=== PATIENT | male | born 1955 | race Caucasian/White ===

== ENCOUNTER 2020-10-03 10:21 | Emergency (ER) | payer BC ==
[2020-10-03 11:44] LABS: BASOPHILS % (AUTO) 0.4 % (0.0-5.0); EOSINOPHILS % (AUTO) 1.2 % (0.0-8.0); HEMATOCRIT 47.5 % (42-54); LYMPHOCYTES % (AUTO) 24.6 % (21.0-51.0); MEAN CORPUSCULAR HEMOGLOBIN 31.2 pg (27.0-33.0); MEAN CORPUSCULAR HGB CONC 33.3 g/dL (32.0-36.0); MEAN CORPUSCULAR VOLUME 93.9 fL (79-99); MONOCYTES % (AUTO) 11.2 % (3.0-13.0); NEUTROPHILS % (AUTO) 62.2 % (40.0-77.0); PLATELET COUNT (AUTO) 212 K/uL (130-400); RED BLOOD CELL COUNT(AUTO) 5.06 MIL/uL (4.50-6.20); RED CELL DISTRIBUTION WIDTH 13.2 % (11.0-15.5); WHITE BLOOD COUNT (AUTO) 4.8 K/uL (4.8-10.8)
[2020-10-03 11:49] LABS: CREATININE 1.3 mg/dL (0.5-1.5); POTASSIUM 4.5 mmol/L (3.5-5.1)
[2020-10-03 11:53] LABS: BILIRUBIN,TOTAL 1.2 mg/dL (0.2-1.0); TOTAL PROTEIN, SERUM 7.1 g/dL (6.0-8.3)
[2020-10-03 12:04] LABS: TROPONIN I 0.05 ng/mL (0.00-0.06)
== END 2020-10-03 13:59 | disposition home or self-care (01) ==
LOC: EDH 10:21
DX: R06.02 Shortness of breath (principal); F41.9 Anxiety disorder, unspecified; I10 Essential (primary) hypertension; Z90.49 Acquired absence of other specified parts of digestive tract
CPT/HCPCS: 36415; 71045; 80053; 82550; 83874; 84484; 85025; 93005

== ENCOUNTER 2020-11-04 10:23 | Emergency (ER) | payer BC ==
[2020-11-04 11:27] LABS: CREATININE 1.9 mg/dL (0.5-1.5); POTASSIUM 4.1 mmol/L (3.5-5.1)
[2020-11-04 11:29] LABS: BASOPHILS % (AUTO) 0.2 % (0.0-5.0); EOSINOPHILS % (AUTO) 0.7 % (0.0-8.0); HEMATOCRIT 54.6 % (42-54); LYMPHOCYTES % (AUTO) 14.3 % (21.0-51.0); MEAN CORPUSCULAR HEMOGLOBIN 30.6 pg (27.0-33.0); MEAN CORPUSCULAR HGB CONC 33.5 g/dL (32.0-36.0); MEAN CORPUSCULAR VOLUME 91.2 fL (79-99); MONOCYTES % (AUTO) 17.4 % (3.0-13.0); NEUTROPHILS % (AUTO) 66.9 % (40.0-77.0); PLATELET COUNT (AUTO) 152 K/uL (130-400); RED BLOOD CELL COUNT(AUTO) 5.99 MIL/uL (4.50-6.20); RED CELL DISTRIBUTION WIDTH 13.3 % (11.0-15.5); WHITE BLOOD COUNT (AUTO) 4.3 K/uL (4.8-10.8)
[2020-11-04 11:40] LABS: ALBUMIN 3.8 g/dL (3.5-5.0); BILIRUBIN,TOTAL 0.6 mg/dL (0.2-1.0); TOTAL PROTEIN, SERUM 7.3 g/dL (6.0-8.3)
== END 2020-11-04 15:02 | disposition home or self-care (01) ==
LOC: EDH 10:23
DX: I95.2 Hypotension due to drugs (principal); I11.0 Hypertensive heart disease with heart failure; I50.9 Heart failure, unspecified; I42.9 Cardiomyopathy, unspecified; R74.8 Abnormal levels of other serum enzymes
CPT/HCPCS: 36415; 71045; 80053; 82550; 83880; 84484; 85025; 93005

== ENCOUNTER 2020-11-06 16:55 | Inpatient (IN) | payer BC ==
[~2020-11-06] VITALS: Ht 185.4 cm; Wt 93.9 kg
[2020-11-06] MEDS ORDERED: CEFTRIAXONE 1G VIAL ONE (18:04)
[2020-11-06] MEDS ORDERED: ASPIRIN 325 MG TABLET ONE (18:04)
[2020-11-06] MEDS ORDERED: AZITHROMYCIN 250 MG TABLET PO ONE (18:04)
[2020-11-06] MEDS ORDERED: ACETAMINOPHEN 325 MG TAB ONE (18:05)
[2020-11-06 18:51] LABS: HEMATOCRIT 48.7 % (42-54); MEAN CORPUSCULAR HEMOGLOBIN 29.7 pg (27.0-33.0); MEAN CORPUSCULAR HGB CONC 32.9 g/dL (32.0-36.0); MEAN CORPUSCULAR VOLUME 90.5 fL (79-99); MONOCYTES % (AUTO) 7.5 % (3.0-13.0); NEUTROPHILS % (AUTO) 77.9 % (40.0-77.0); PLATELET COUNT (AUTO) 112 K/uL (130-400); RED BLOOD CELL COUNT(AUTO) 5.38 MIL/uL (4.50-6.20); RED CELL DISTRIBUTION WIDTH 13.3 % (11.0-15.5); WHITE BLOOD COUNT (AUTO) 3.2 K/uL (4.8-10.8)
[2020-11-06 19:02] LABS: CREATININE 1.2 mg/dL (0.5-1.5); POTASSIUM 3.9 mmol/L (3.5-5.1)
[2020-11-06 19:15] LABS: B-TYPE NATRIURETIC PEPTIDE 493 pg/mL (0-100)
[2020-11-06 19:15] LABS: ALBUMIN 3.1 g/dL (3.5-5.0); BILIRUBIN,TOTAL 0.6 mg/dL (0.2-1.0); TOTAL PROTEIN, SERUM 6.4 g/dL (6.0-8.3)
[2020-11-06 19:31] LABS: APPEARANCE,URINE Clear (CLEAR); BILIRUBIN,URINE Small (NEGATIVE); COLOR,URINE Dark Yellow (YELLOW); GLUCOSE, URINE (UA) Negative (NEGATIVE); KETONES,URINE Trace mg/dL (NEGATIVE); LEUKOCYTE ESTERASE ,URINE Trace (NEGATIVE); NITRATE,URINE Negative (NEGATIVE); OCCULT BLOOD,URINE Trace (NEGATIVE); PH,URINE 5.5 (5.0-8.0); PROTEIN,URINE 300 mg/dL (NEGATIVE)
[2020-11-06 19:38] LABS: AMPHET/METH SCREEN,URINE NEGATIVE (NEGATIVE); BARBITURATE SCREEN, URINE NEGATIVE (NEGATIVE); BENZODIAZEPINES SCREEN,URINE POSITIVE (NEGATIVE); CANNABINOID SCREEN,URINE POSITIVE (NEGATIVE); COCAINE SCREEN,URINE NEGATIVE (NEGATIVE); OPIATE SCREEN,URINE NEGATIVE (NEGATIVE); PHENCYCLIDINE SCREEN,URINE NEGATIVE (NEGATIVE)
[2020-11-06 19:44] LABS: BACTERIA,URINE Few /HPF (None Seen); MUCUS,URINE Rare LPF (None Seen); RBC,URINE 0-1 /HPF (0-1); SQUAMOUS EPITHELIAL CELL,UR Rare /HPF (0-2)
[2020-11-06 20:03] LABS: INR 1.09 (0.85-1.15); PROTHROMBIN TIME 11.8 SEC (9.6-11.6)
[2020-11-06 20:04] LABS: PARTIAL THROMBOPLASTIN TIME 34.2 SEC (26.3-35.5)
[2020-11-06] MEDS ORDERED: ACETAMINOPHEN 325 MG TAB PO PRN (21:30)
[2020-11-06] MEDS ORDERED: MAG/ALUM/SIMETH 30 ML UDCUP PO PRN (21:30)
[2020-11-06] MEDS ORDERED: NITROGLYCERIN 0.4 MG SL TAB SL PRN (21:30)
[2020-11-06] MEDS ORDERED: LACTULOSE 20 GM/30 ML UDCUP PO PRN (21:30)
[2020-11-06] MEDS ORDERED: GUAIFENESIN-DM 200/20 MG 10 ML PO PRN (21:30)
[2020-11-06] MEDS: AZITHROMYCIN 250 MG TABLET PO SCH (22:30)
[2020-11-07] MEDS ORDERED: GUAIFENESIN-DM 200/20 MG 10 ML ONE (00:54)
[2020-11-07] MEDS ORDERED: AZITHROMYCIN 250 MG TABLET PO ONE (00:54)
[2020-11-07] MEDS ORDERED: ACETAMINOPHEN WITH CODEINE 1 TAB TAB ONE (00:54)
[2020-11-07 03:29] VITALS: BP 99/64
[2020-11-07] MEDS: ACETAMINOPHEN WITH CODEINE 1 TAB TAB PO PRN ×2 (03:38→21:12)
[2020-11-07] MEDS ORDERED: SACU1TAB7 PO (04:34)
[2020-11-07] MEDS ORDERED: CARV12.511 PO (04:34)
[2020-11-07 05:59] LABS: BASOPHILS % (AUTO) 0.5 % (0.0-5.0); EOSINOPHILS % (AUTO) 1.4 % (0.0-8.0); HEMATOCRIT 47.7 % (42-54); MEAN CORPUSCULAR HEMOGLOBIN 30.6 pg (27.0-33.0); MEAN CORPUSCULAR HGB CONC 33.5 g/dL (32.0-36.0); MEAN CORPUSCULAR VOLUME 91.2 fL (79-99); MONOCYTES % (AUTO) 4.1 % (3.0-13.0); NEUTROPHILS % (AUTO) 79.3 % (40.0-77.0); PLATELET COUNT (AUTO) 112 K/uL (130-400); RED BLOOD CELL COUNT(AUTO) 5.23 MIL/uL (4.50-6.20); RED CELL DISTRIBUTION WIDTH 13.4 % (11.0-15.5); WHITE BLOOD COUNT (AUTO) 4.4 K/uL (4.8-10.8)
[2020-11-07] MEDS ORDERED: BENZONATATE 100 MG CAPSULE PO PRN (06:00)
[2020-11-07] MEDS ORDERED: GUAIFENESIN-CODEINE 5 ML SYRUP PO PRN (06:00)
[2020-11-07] MEDS ORDERED: GUAIFENESIN-CODEINE 5 ML SYRUP ONE (06:10)
[2020-11-07 06:17] LABS: CREATININE 1.3 mg/dL (0.5-1.5); CRP QUANTITATIVE 126.7 mg/L (0.00-9.0); MAGNESIUM 1.9 mg/dL (1.80-2.40); PHOSPHORUS 2.2 mg/dL (2.5-4.9); POTASSIUM 4.2 mmol/L (3.5-5.1)
[2020-11-07] MEDS ORDERED: BENZONATATE 100 MG CAPSULE PO ONE (06:18)
[2020-11-07] MEDS ORDERED: BENZOCAINE/MENTH/CETYLPYRD CL 1 EACH LOZENGE MM ONE (06:19)
[2020-11-07] MEDS: BENZONATATE 100 MG CAPSULE PO SCH ×3 (06:23→20:23)
[2020-11-07 08:00] VITALS: BP 105/79
[2020-11-07] MEDS: ASPIRIN 325MG EC TAB PO SCH (08:40)
[2020-11-07] MEDS: FAMOTIDINE 20MG VIAL IV SCH ×2 (08:40→20:24)
[2020-11-07] MEDS: ENOXAPARIN SODIUM 40 MG/0.4 ML SYRINGE SQ SCH (08:41)
[2020-11-07] MEDS ORDERED: CARVEDILOL 6.25 MG TABLET PO SCH (09:00)
[2020-11-07] MEDS ORDERED: CEFTRIAXONE 500MG VIAL IV SCH (09:00)
[2020-11-07] MEDS ORDERED: LORAZEPAM 1 MG TABLET PO SCH (10:45)
[2020-11-07] MEDS ORDERED: LORAZEPAM 0.5 MG TABLET PO PRN (11:00)
[2020-11-07] MEDS: LACTATED RINGERS 1000ML 1,000 ML IV SCH ×2 (11:32→20:24)
[2020-11-07] MEDS: DEXAMETHASONE SOD PHOSPHATE 4 MG/ML 1ML VIAL IVP SCH (12:02)
[2020-11-07 13:25] VITALS: BP 108/78
[2020-11-07 16:00] VITALS: BP 116/96
[2020-11-07 20:00] VITALS: BP 136/79
[2020-11-07] MEDS: AZITHROMYCIN 250 MG TABLET PO SCH (20:23)
[2020-11-07] MEDS: CARVEDILOL 6.25 MG TABLET PO SCH (20:24)
[2020-11-07] MEDS: BENZOCAINE/MENTH/CETYLPYRD CL 1 EACH LOZENGE MM PRN (20:25)
[2020-11-07] MEDS: GUAIFENESIN-CODEINE 5 ML SYRUP PO PRN (20:27)
[2020-11-07] MEDS: ***HM***(Sacubitril/Valsartan (Entresto 49 mg-51 mg Tablet) 1 EACH PO SCH (20:41)
[2020-11-07] MEDS ORDERED: CARVEDILOL 3.125 MG TABLET PO SCH (21:00)
[2020-11-07 21:11] LABS: ABG BASE EXCESS -1.6 mmol/L (-2.0-3.0); ABG HCO3 20.7 mmol/L (21.0-28.0); ABG OXYGEN SATURATION 97.2 % (95.0-99.0); ABG PCO2 29 mmHg (35-48)
[2020-11-07] MEDS: ALBUTEROL INHALER 90MCG/INH IH SCH (23:00)
[2020-11-07] MEDS ORDERED: LORAZEPAM 1 MG TABLET ONE (23:10)
[2020-11-07] MEDS ORDERED: LORAZEPAM 1 MG TABLET PO ONE (23:15)
[2020-11-07 23:31] VITALS: BP 119/47
[2020-11-08] MEDS: DEXAMETHASONE SOD PHOSPHATE 4 MG/ML 1ML VIAL IVP SCH ×2 (00:33→13:24)
[2020-11-08] MEDS: BENZOCAINE/MENTH/CETYLPYRD CL 1 EACH LOZENGE MM PRN (00:59)
[2020-11-08] MEDS: GUAIFENESIN-CODEINE 5 ML SYRUP PO PRN ×2 (00:59→06:02)
[2020-11-08] MEDS: ALBUTEROL INHALER 90MCG/INH IH SCH ×6 (02:12→20:29)
[2020-11-08] MEDS ORDERED: ZOLPIDEM TARTRATE 5 MG TAB PO ONE (02:15)
[2020-11-08] MEDS ORDERED: ZOLPIDEM TARTRATE 5 MG TAB ONE (02:30)
[2020-11-08 03:59] VITALS: BP 114/84
[2020-11-08 05:14] LABS: HEMATOCRIT 48.5 % (42-54); LYMPHOCYTES % (AUTO) 12.6 % (21.0-51.0); MEAN CORPUSCULAR HEMOGLOBIN 30.2 pg (27.0-33.0); MEAN CORPUSCULAR HGB CONC 33.6 g/dL (32.0-36.0); MEAN CORPUSCULAR VOLUME 89.8 fL (79-99); MONOCYTES % (AUTO) 4.7 % (3.0-13.0); NEUTROPHILS % (AUTO) 82.2 % (40.0-77.0); PLATELET COUNT (AUTO) 135 K/uL (130-400); RED CELL DISTRIBUTION WIDTH 13.3 % (11.0-15.5); WHITE BLOOD COUNT (AUTO) 3.8 K/uL (4.8-10.8)
[2020-11-08 05:31] LABS: BILIRUBIN,TOTAL 0.8 mg/dL (0.2-1.0); CREATININE 1.4 mg/dL (0.5-1.5); POTASSIUM 5.1 mmol/L (3.5-5.1); TOTAL PROTEIN, SERUM 6.7 g/dL (6.0-8.3)
[2020-11-08 05:43] LABS: CRP QUANTITATIVE 195.9 mg/L (0.00-9.0)
[2020-11-08 08:00] VITALS: BP 113/72
[2020-11-08] MEDS: BENZONATATE 100 MG CAPSULE PO SCH ×3 (08:14→20:25)
[2020-11-08] MEDS: ASPIRIN 325MG EC TAB PO SCH (08:16)
[2020-11-08] MEDS: FAMOTIDINE 20MG VIAL IV SCH ×2 (08:16→20:29)
[2020-11-08] MEDS: CEFTRIAXONE 1G VIAL IV SCH (08:19)
[2020-11-08] MEDS: ENOXAPARIN SODIUM 40 MG/0.4 ML SYRINGE SQ SCH (08:31)
[2020-11-08] MEDS: CARVEDILOL 6.25 MG TABLET PO SCH ×2 (08:31→21:00)
[2020-11-08] MEDS: ***HM***(Sacubitril/Valsartan (Entresto 49 mg-51 mg Tablet) 1 EACH PO SCH ×2 (09:00→20:29)
[2020-11-08] MEDS ORDERED: FUROSEMIDE 20 MG TABLET PO SCH (09:00)
[2020-11-08 12:00] VITALS: BP 133/83
[2020-11-08] MEDS ORDERED: LORAZEPAM 2 MG TABLET PO PRN (12:45)
[2020-11-08 16:00] VITALS: BP 97/59
[2020-11-08] MEDS ORDERED: PHARMACY COMMUNICATION MISC SCH (18:00)
[2020-11-08] MEDS ORDERED: COMPOUND IV REFRIGERATED 1 EACH IVSOLN MISC PRN (18:30)
[2020-11-08] MEDS ORDERED: REMDESIVIR (EUA) 520 200 MG in 0.9% NACL 250ML 250 ML IV ONE (18:30)
[2020-11-08] MEDS: BARICITINIB (EUA) 2 MG TABLET PO SCH (19:09)
[2020-11-08] MEDS ORDERED: FUROSEMIDE 40MG VIAL IV SCH (19:50)
[2020-11-08 20:00] VITALS: BP 90/62
[2020-11-08] MEDS: OLANZAPINE 10MG/ML 1ML VIAL IM PRN (20:28)
[2020-11-08] MEDS: LORAZEPAM 2 MG/ML 1 ML VIAL IVP PRN (20:28)
[2020-11-08] MEDS: AZITHROMYCIN 250 MG TABLET PO SCH (22:02)
[2020-11-09] VITALS: BP 89/54
[2020-11-09] MEDS: DEXAMETHASONE SOD PHOSPHATE 4 MG/ML 1ML VIAL IVP SCH ×3 (00:27→23:33)
[2020-11-09] MEDS ORDERED: 0.9%NACL 100ML 100 ML IV ONE ×2 (01:21→08:19)
[2020-11-09 04:00] VITALS: BP 91/67
[2020-11-09 05:08] LABS: BASOPHILS % (AUTO) 0.2 % (0.0-5.0); HEMATOCRIT 47.6 % (42-54); LYMPHOCYTES % (AUTO) 11.4 % (21.0-51.0); MEAN CORPUSCULAR HEMOGLOBIN 30.5 pg (27.0-33.0); MEAN CORPUSCULAR HGB CONC 34.2 g/dL (32.0-36.0); MEAN CORPUSCULAR VOLUME 89.1 fL (79-99); NEUTROPHILS % (AUTO) 81.9 % (40.0-77.0); PLATELET COUNT (AUTO) 151 K/uL (130-400); RED BLOOD CELL COUNT(AUTO) 5.34 MIL/uL (4.50-6.20); RED CELL DISTRIBUTION WIDTH 13.3 % (11.0-15.5); WHITE BLOOD COUNT (AUTO) 5.5 K/uL (4.8-10.8)
[2020-11-09 05:30] LABS: BILIRUBIN,TOTAL 0.6 mg/dL (0.2-1.0); CREATININE 1.5 mg/dL (0.5-1.5); CRP QUANTITATIVE 117.6 mg/L (0.00-9.0); POTASSIUM 4.8 mmol/L (3.5-5.1); TOTAL PROTEIN, SERUM 6.6 g/dL (6.0-8.3)
[2020-11-09] MEDS: REMDESIVIR LABS MISC SCH (06:00)
[2020-11-09] MEDS: ALBUTEROL INHALER 90MCG/INH IH SCH ×5 (06:44→23:33)
[2020-11-09 07:57] LABS: ABG BASE EXCESS -0.6 mmol/L (-2.0-3.0); ABG HCO3 22.8 mmol/L (21.0-28.0); ABG OXYGEN SATURATION 93.1 % (95.0-99.0); ABG PCO2 34 mmHg (35-48)
[2020-11-09 08:00] VITALS: BP 128/79
[2020-11-09] MEDS: ASPIRIN 325MG EC TAB PO SCH (08:05)
[2020-11-09] MEDS: FAMOTIDINE 20MG VIAL IV SCH ×2 (08:05→20:58)
[2020-11-09] MEDS: CARVEDILOL 6.25 MG TABLET PO SCH ×2 (08:12→20:58)
[2020-11-09] MEDS: BARICITINIB (EUA) 2 MG TABLET PO SCH (08:13)
[2020-11-09] MEDS: BENZONATATE 100 MG CAPSULE PO SCH ×3 (08:15→20:57)
[2020-11-09] MEDS: ENOXAPARIN SODIUM 40 MG/0.4 ML SYRINGE SQ SCH (08:15)
[2020-11-09] MEDS: CEFTRIAXONE 1G VIAL IV SCH (09:00)
[2020-11-09] MEDS: ***HM***(Sacubitril/Valsartan (Entresto 49 mg-51 mg Tablet) 1 EACH PO SCH ×2 (09:00→21:00)
[2020-11-09] MEDS: FUROSEMIDE 40MG VIAL IV SCH ×2 (11:06→18:30)
[2020-11-09 12:00] VITALS: BP 94/54
[2020-11-09 17:00] VITALS: BP 90/40
[2020-11-09] MEDS ORDERED: REMDESIVIR (EUA) 520 100 MG in 0.9% NACL 250ML 250 ML IV SCH (18:30)
[2020-11-09 20:00] VITALS: BP 110/74
[2020-11-09] MEDS: AZITHROMYCIN 250 MG TABLET PO SCH (20:57)
[2020-11-09] MEDS: GUAIFENESIN-CODEINE 5 ML SYRUP PO PRN (20:59)
[2020-11-09] MEDS: LORAZEPAM 2 MG/ML 1 ML VIAL IVP PRN (21:00)
[2020-11-09] MEDS: OLANZAPINE 10MG/ML 1ML VIAL IM PRN (21:01)
[2020-11-10] VITALS (19 sets, daily range): BP systolic 73–134; BP diastolic 36–89
[2020-11-10] MEDS: ALBUTEROL INHALER 90MCG/INH IH SCH ×5 (02:00→18:46)
[2020-11-10] MEDS: FUROSEMIDE 40MG VIAL IV SCH ×3 (04:07→18:21)
[2020-11-10] MEDS: LORAZEPAM 2 MG/ML 1 ML VIAL IVP PRN ×3 (04:42→21:27)
[2020-11-10] MEDS: OLANZAPINE 10MG/ML 1ML VIAL IM PRN ×2 (04:42→21:28)
[2020-11-10 05:14] LABS: HEMATOCRIT 45.1 % (42-54); MEAN CORPUSCULAR HEMOGLOBIN 29.7 pg (27.0-33.0); MEAN CORPUSCULAR HGB CONC 33.7 g/dL (32.0-36.0); MEAN CORPUSCULAR VOLUME 88.3 fL (79-99); MONOCYTES % (AUTO) 4.8 % (3.0-13.0); PLATELET COUNT (AUTO) 173 K/uL (130-400); RED BLOOD CELL COUNT(AUTO) 5.11 MIL/uL (4.50-6.20); RED CELL DISTRIBUTION WIDTH 13.1 % (11.0-15.5); WHITE BLOOD COUNT (AUTO) 7.5 K/uL (4.8-10.8)
[2020-11-10 05:22] LABS: ALBUMIN 2.9 g/dL (3.5-5.0); BILIRUBIN,TOTAL 0.7 mg/dL (0.2-1.0); CREATININE 1.4 mg/dL (0.5-1.5); POTASSIUM 4.7 mmol/L (3.5-5.1); TOTAL PROTEIN, SERUM 5.6 g/dL (6.0-8.3)
[2020-11-10] MEDS ORDERED: LORAZEPAM 2 MG/ML 1 ML VIAL IVP ONE (05:30)
[2020-11-10] MEDS: REMDESIVIR LABS MISC SCH (06:00)
[2020-11-10] MEDS ORDERED: CEFTRIAXONE 1G VIAL IV SCH (09:00)
[2020-11-10] MEDS: ***HM***(Sacubitril/Valsartan (Entresto 49 mg-51 mg Tablet) 1 EACH PO SCH ×2 (09:00→21:00)
[2020-11-10] MEDS: FAMOTIDINE 20MG VIAL IV SCH ×2 (09:16→22:07)
[2020-11-10] MEDS: ASPIRIN 325MG EC TAB PO SCH (09:16)
[2020-11-10] MEDS: ENOXAPARIN SODIUM 40 MG/0.4 ML SYRINGE SQ SCH (09:16)
[2020-11-10] MEDS: CARVEDILOL 6.25 MG TABLET PO SCH ×2 (09:20→21:00)
[2020-11-10] MEDS: BENZONATATE 100 MG CAPSULE PO SCH ×3 (09:21→21:00)
[2020-11-10] MEDS: DEXAMETHASONE SOD PHOSPHATE 4 MG/ML 1ML VIAL IVP SCH ×2 (10:48→22:07)
[2020-11-10] MEDS ORDERED: DEXMEDETOMIDINE HCL 400 MCG in 0.9%NACL 100ML 100 ML IV SCH (18:00)
[2020-11-10] MEDS: AZITHROMYCIN 250 MG TABLET PO SCH (22:07)
[2020-11-11 00:02] VITALS: BP 69/49
[2020-11-11 01:10] VITALS: BP 120/72
[2020-11-11 02:50] LABS: HEMATOCRIT 50.8 % (42-54); MEAN CORPUSCULAR HEMOGLOBIN 30.6 pg (27.0-33.0); MEAN CORPUSCULAR HGB CONC 32.3 g/dL (32.0-36.0); MEAN CORPUSCULAR VOLUME 94.8 fL (79-99); RED BLOOD CELL COUNT(AUTO) 5.36 MIL/uL (4.50-6.20); RED CELL DISTRIBUTION WIDTH 13.5 % (11.0-15.5); WHITE BLOOD COUNT (AUTO) 8.9 K/uL (4.8-10.8)
[2020-11-11] MEDS ORDERED: EPINEPHRINE PF 1MG AMP ONE (02:57)
[2020-11-11] MEDS ORDERED: EPINEPHRINE 1 MG/ML 30ML VIAL IJ ONE (02:58)
[2020-11-11 03:09] LABS: ALBUMIN 2.5 g/dL (3.5-5.0); BILIRUBIN,TOTAL 0.7 mg/dL (0.2-1.0); CREATININE 2.1 mg/dL (0.5-1.5); CRP QUANTITATIVE 41.1 mg/L (0.00-9.0); MAGNESIUM 2.5 mg/dL (1.80-2.40); PHOSPHORUS 4.5 mg/dL (2.5-4.9); TOTAL PROTEIN, SERUM 5.8 g/dL (6.0-8.3)
[2020-11-11] MEDS ORDERED: PANTOPRAZOLE 40 MG TAB DR PO SCH (09:00)
== END 2020-11-11 03:08 | disposition expired | DRG 208 ==
LOC: EDH 16:55 → EDHIP 20:20 → 2AH 11-07 01:31 → 2BH 11-10 18:00
PROVIDERS: ADMIT Family Medicine; ATTEND Family Medicine
PROC: 5A0945A Assistance with Respiratory Ventilation, 24-96 Consecutive Hours, High Flow/Velocity Cannula (ICD-10-PCS; 2020-11-07)
PROC: XW033E5 Introduction of Remdesivir Anti-infective into Peripheral Vein, Percutaneous Approach, New Technology Group 5 (ICD-10-PCS; principal; 2020-11-08)
PROC: 5A1935Z Respiratory Ventilation, Less than 24 Consecutive Hours (ICD-10-PCS; 2020-11-11)
PROC: 0BH17EZ Insertion of Endotracheal Airway into Trachea, Via Natural or Artificial Opening (ICD-10-PCS; 2020-11-11)
PROC: 5A12012 Performance of Cardiac Output, Single, Manual (ICD-10-PCS; 2020-11-11)
DX: U07.1 COVID-19 (principal); I21.4 Non-ST elevation (NSTEMI) myocardial infarction; J12.82 Pneumonia due to coronavirus disease 2019; I50.43 Acute on chronic combined systolic (congestive) and diastolic (congestive) heart failure; J96.01 Acute respiratory failure with hypoxia; E87.1 Hypo-osmolality and hyponatremia; I42.0 Dilated cardiomyopathy; N18.4 Chronic kidney disease, stage 4 (severe); I13.0 Hypertensive heart and chronic kidney disease with heart failure and stage 1 through stage 4 chronic kidney disease, or unspecified chronic kidney disease; M62.82 Rhabdomyolysis; D68.59 Other primary thrombophilia; J96.11 Chronic respiratory failure with hypoxia; E86.0 Dehydration; I50.9 Heart failure, unspecified; F12.10 Cannabis abuse, uncomplicated; F13.10 Sedative, hypnotic or anxiolytic abuse, uncomplicated; Z60.2 Problems related to living alone; E87.70 Fluid overload, unspecified; F41.9 Anxiety disorder, unspecified; Z90.49 Acquired absence of other specified parts of digestive tract; Z80.1 Family history of malignant neoplasm of trachea, bronchus and lung; Z82.49 Family history of ischemic heart disease and other diseases of the circulatory system
CPT/HCPCS: 31500; 36415; 36600; 71045; 80048; 80053; 80305; 81001; 82140; 82550; 82728; 82803; 82948; 83605; 83690; 83735; 83880; 84100; 84145; 84484; 85025; 85027; 85378; 85610; 85730; 86140; 86900; 86901; 87040; 87426; 87804; 87880; 92950; 93005; 93970; 94002; 94660; 99291; G0378; J0171; J0696; J1100; J1650; J1940; J2060; J3490; J7050; J7120